=== PATIENT | female | born 1960 | race Caucasian/White ===

== ENCOUNTER 2019-01-25 15:17 | Emergency (ER) | payer BC, OTHER ==
[~2019-01-25] VITALS: Ht 160 cm; Wt 50.0 kg
[~2019-01-25 15:17] MED LIST: ASPI-817 PO; ATOR-2 PO; CARSR60 PO; METO-429 PO
[2019-01-25 15:50] VITALS: Ht 160 cm; Wt 50.0 kg
--- NOTE | 2019-01-25 16:48 | ERD ---
ER Documentation Chief Complaint Chief Complaint SOB after getting new chemo HPI Patient has new diagnosis of colorectal cancer status post resection and had a first chemo treatment this afternoon during the therapy she began to have palpitations weakness that have since resolved. No radiation. Uses a port in her right chest. No prior chemotherapy. No nausea or vomiting. No shortness of breath or chest pain. No fever. No diarrhea. No dysuria. No abdominal pain. Patient feels well at this time. ROS All systems reviewed and are negative except as per history of present illness. Medications Home Meds Reported Medications Diltiazem Hcl* (Cardizem SR*) 60 Mg Capsr, 60 MG PO TID, #60 CAP 01/25/19 Metoprolol Tartrate* (Lopressor*) 50 Mg Tab, 50 MG PO DAILY, #60 TAB 01/25/19 Atorvastatin* (Atorvastatin*) 80 Mg Tablet, 80 MG PO QHS, #30 TAB 01/25/19 Aspirin* (Aspirin* EC) 81 Mg Tablet.dr, 81 MG PO DAILY, TAB 01/25/19 Allergies Allergies: Coded Allergies: No Known Allergy (Unverified , 01/25/19) PMhx/Soc History of Surgery: Yes (Colon resection) Physical Exam Vitals Vital Signs Date Temp Pulse Resp B/P (MAP) Pulse Ox O2 O2 Flow FiO2 Time Delivery Rate 01/25/19 69 20 113/58 99 Room Air 17:50 (76) 01/25/19 97.8 80 18 104/50 98 15:50 (68) 01/25/19 97.7 88 18 126/65 98 15:47 (85) Physical Exam Const: No acute distress Head: Atraumatic Eyes: Normal Conjunctiva ENT: Normal External Ears, Nose and Mouth. Neck: Full range of motion. No meningismus. Resp: Clear to auscultation bilaterally Cardio: Regular rate and rhythm, no murmurs Abd: Soft, non tender, non distended. Normal bowel sounds Skin: No petechiae or rashes Back: No midline or flank tenderness Ext: No cyanosis, or edema Neur: Awake and alert Psych: Normal Mood and Affect Result Diagram: 01/25/19 1656 01/25/19 1656 Results 24 hrs Laboratory Tests Test 01/25/19 16:56 White Blood Count 4.2 10^3/ul Red Blood Count 4.82 10^6/ul Hemoglobin 11.8 g/dl Hematocrit 38.5 % Mean Corpuscular Volume 79.9 fl Mean Corpuscular Hemoglobin 24.5 pg Mean Corpuscular Hemoglobin Concent 30.6 g/dl Red Cell Distribution Width 20.5 % Platelet Count 256 10^3/UL Mean Platelet Volume 10.6 fl Immature Granulocytes % 0.200 % Neutrophils % 93.5 % Lymphocytes % 5.9 % Monocytes % 0.2 % Eosinophils % 0.0 % Basophils % 0.2 % Nucleated Red Blood Cells % 0.0 /100WBC Immature Granulocytes # 0.010 10^3/ul Neutrophils # 3.9 10^3/ul Lymphocytes # 0.3 10^3/ul Monocytes # 0.0 10^3/ul Eosinophils # 0.0 10^3/ul Basophils # 0.0 10^3/ul Nucleated Red Blood Cells # 0.0 10^3/ul Sodium Level 143 mmol/L Potassium Level 3.4 mmol/L Chloride Level 109 mmol/L Carbon Dioxide Level 24 mmol/L Anion Gap 10 Blood Urea Nitrogen 11 mg/dl Creatinine 0.46 mg/dl Est Glomerular Filtrat Rate mL/min > 60 mL/min Glucose Level 136 mg/dl Calcium Level 9.0 mg/dl Total Bilirubin 0.4 mg/dl Direct Bilirubin 0.00 mg/dl Indirect Bilirubin 0.4 mg/dl Aspartate Amino Transf (AST/SGOT) 24 IU/L Alanine Aminotransferase (ALT/SGPT) 25 IU/L Alkaline Phosphatase 100 IU/L Troponin I < 0.012 ng/ml Total Protein 8.2 g/dl Albumin 4.4 g/dl Globulin 3.80 g/dl Albumin/Globulin Ratio 1.15 Serum HCG, Qualitative NEGATIVE Current Medications Medications Dose Sig/Wagner Start Time Status Last (Trade) Ordered Route PRN Stop Time Admin Dose Reason Admin Sodium 1,000 ml @ Q1H ONCE 01/25/19 DC 01/25/19 Chloride 1,000 mls/hr IV 17:00 17:14 01/25/19 17:59 Procedures/MDM Patient presenting with weakness after initiation of chemotherapy today with normal vital signs and normal labs. Low suspicion for infection. Most vision for neuropathy. No suspicion for EMERGENCY DEPARTMENT COORDINATOR or cardiac pathology. Patient feels better after fluids. Discussion had about admission for observation for weaknes s versus discharge with close follow-up patient and family feel comfortable going home with strict return precautions. Will discharge patient Departure Diagnosis: Primary Impression: Weakness Condition: Stable TIMOTHY VIRAMONTES MD Jan 25, 2019 16:48
[2019-01-25] MEDS ORDERED: SOD CHLORIDE 0.9% 1,000 ML IV ONE (17:00)
[2019-01-25 19:00] VITALS: BP 114/60; PULSE 79; RESP 18
== END 2019-01-25 19:11 | disposition home or self-care (01) ==
LOC: E/R 15:17
DX: R53.1 Weakness (principal); C18.9 Malignant neoplasm of colon, unspecified; Z79.82 Long term (current) use of aspirin
CPT/HCPCS: 71045; 80053; 84484; 84703; 85025; 93005; 99285; J7030